=== PATIENT | female | born 1985 | race Hispanic/Latino ===

== ENCOUNTER 2017-02-23 19:35 | Emergency (ER) | payer OTHER ==
[2017-02-23 19:53] VITALS: BP 129/76; TEMP 96.8
--- NOTE | 2017-02-23 20:03 | ED.PDOC ---
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 No shortness of breath. Minimal pain at rest. There was no fall or direct trauma. No loss of sensation. No palpitations. No diaphoresis. No previous injury. Pain is worse with motion. Pain is over the distribution of the latissimus dorsi muscle on the right, primarily the more lateral aspect of the muscle. Pain is worse with function of latissimus dorsi muscle. No obvious deformity. There does not appear to be a muscle tear only likely muscle strain. She also does have some mild tenderness to palpation over the right rhomboid muscle. she denies any previous injury. There is no pain in the shoulder itself with active or passive range of motion. She does appear to be neurovascularly intact. Strength does appear to be preserved. Timing/Duration: 4-6 hours Severity: moderate Improving Factors: immobilization Worsening Factors: movement Associated Symptoms: denies symptoms Allergies/Adverse Reactions: Allergies Bee Venom Allergy (Verified 02/23/17 19:53) Home Medications: Ambulatory Orders Cyclobenzaprine HCl [Flexeril] 5 mg PO TID PRN #30 tab 02/23/17 Review of Systems - Review of Systems Constitutional: States: no symptoms reported EENTM: States: no symptoms reported Respiratory: States: no symptoms reported Cardiology: States: no symptoms reported, chest pain - see history of present illness Gastrointestinal/Abdominal: States: no symptoms reported Genitourinary: States: no symptoms reported Musculoskeletal: States: see HPI Skin: States: no symptoms reported Neurological: States: no symptoms reported Endocrine: States: no symptoms reported Past Medical History (General) - Patient Medical History Surgical History: no surgical history - Vaccination History Hx Influenza Vaccination: Yes - Female History Patient is a Female of Child Bearing Age (10 -59 yrs old): Yes Patient : No Family Medical History - Family History Father Family History: Unknown Physical Exam - Physical Exam General Appearance: Alert, Comfortable, No apparent distress Eye Exam: bilateral normal Ears, Nose, Throat: hearing grossly normal Neck: full range of motion, normal inspection Respiratory: no respiratory distress, no accessory muscle use Cardiovascular/Chest: no edema, other - see history of present illness for thorax exam Rectal Exam: deferred Back Exam: no CVA tenderness, no vertebral tenderness, other - see history of present illness Extremity: normal range of motion, non-tender, normal inspection 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 There does not appear to be a significant tear at this time. Stretching exercises may help. Topical heat may help. 2 Aleve twice daily may also help. She should anticipate to have some discomfort and limited function for a couple of weeks. X-rays are not indicated at this time. She should follow up with her primary care doctor in 10 days to 2 weeks for reevaluation. ER warnings are given for any worsening. Departure - Departure Clinical Impression: Strain of latissimus dorsi muscle Qualifiers: Encounter type: initial encounter Qualified Code(s): S29.012A - Strain of muscle and tendon of back wall of thorax, initial encounter Disposition: Discharge to Home or Self Care Condition: Fair Departure Forms: ED Discharge - Pt. Copy, Patient Portal Self Enrollment Instructions: DI for Muscle Strain Diet: regular diet Activity: other - Lifting limited to 20 pounds with the right side for the next 2 weeks Prescriptions: Cyclobenzaprine HCl [Flexeril] 5 mg PO TID PRN #30 tab PRN Reason: Muscle Spasms Home Medications: Ambulatory Orders Cyclobenzaprine HCl [Flexeril] 5 mg PO TID PRN #30 tab 02/23/17 Additional Instructions: the patient is a 31-year-old female presenting to the emergency room after sustaining what appears to be a right latissimus dorsi muscle strain while at work this morning. There does not appear to be a significant tear at this time. Stretching exercises may help. Topical heat may help. 2 Aleve twice daily may also help. She should anticipate to have some discomfort and limited function for a couple of weeks. X-rays are not indicated at this time. She should follow up with her primary care doctor in 10 days to 2 weeks for reevaluation. ER warnings are given for any worsening.
[2017-02-23 20:18] VITALS: O2SAT 99
== END 2017-02-23 20:18 | disposition home or self-care (01) ==
LOC: ER 19:35
DX: S29.012A Strain of muscle and tendon of back wall of thorax, initial encounter (principal); X50.9XXA Other and unspecified overexertion or strenuous movements or postures, initial encounter; Y92.239 Unspecified place in hospital as the place of occurrence of the external cause; Y99.0 Civilian activity done for income or pay

== ENCOUNTER → 2019-04-05 | Outpatient (CLI) | payer OTHER | LOC: YCFC.O 10:13 | PROVIDERS: ATTEND Family Medicine | DX: R53.83 Other fatigue (principal); R06.02 Shortness of breath ==

== ENCOUNTER 2019-08-02 15:54 | Emergency (ER) | payer OTHER ==
--- NOTE | 2019-08-02 16:07 | ED.PDOC ---
History of Present Illness - General Chief Complaint: Skin/Abrasion/Tear Stated Complaint: needlestick Time Seen by Provider: 08/02/19 16:00 Source: patient Exam Limitations: no limitations - History of Present Illness Initial Comments: 33 yo otherwise healthy female who presents for needle stick. Pt was using blood warmer and attempting to remove air from tubing at y-site with 18 gauge needle. When engaging safety mechanism the edge of the needle scraped the finger pulp of her L index finger. Minimal bleeding afterwards, pt cleaned the wound very well. Believes the only blood on the needle was that out of the blood being transfused, and none from the pt being transfused. Denies injuries elsewhere. Otherwise in normal states of health. Allergies/Adverse Reactions: Allergies Bee Venom Allergy (Verified 02/23/17 19:53) Home Medications: Ambulatory Orders Cyclobenzaprine HCl [Flexeril] 5 mg PO TID PRN #30 tab 02/23/17 Review of Systems - Review of Systems Constitutional: States: no symptoms reported EENTM: States: no symptoms reported Respiratory: States: no symptoms reported Cardiology: States: no symptoms reported Gastrointestinal/Abdominal: States: no symptoms reported Genitourinary: States: no symptoms reported Musculoskeletal: States: no symptoms reported Skin: States: other - Finger stick to L IF Neurological: States: no symptoms reported Endocrine: States: no symptoms reported Hematologic/Lymphatic: States: no symptoms reported Past Medical History (General) - Vaccination History Hx Influenza Vaccination: Yes - Female History Patient : No Family Medical History - Family History Father Family History: Unknown Physical Exam - Physical Exam General Appearance: Alert, Comfortable, No apparent distress, Well Developed, Well Groomed, Well Nourished Neck: full range of motion Respiratory: lungs clear, normal breath sounds, no respiratory distress Cardiovascular/Chest: normal peripheral pulses, regular rate, rhythm Peripheral Pulses: radial,right: 2+, radial,left: 2+ Extremity: normal range of motion Neurologic: alert, normal mood/affect, other - Grossly intact Skin Exam: other - Small puncture wound to L IF finger pulp, no active bleeding. No erythema, fluctuance, induration, discharge. Progress - Progress Progress: 08/02/19 16:27 I have explained and reviewed all results with the pt. Through shared decision m aking discussing risks and benefits, pt declines prophylactic medications. Will discuss with her supervisor filtration the option of testing the pt as well. I explained that emergent conditions may arise and to return to the ER for new, worsening, or any persistent conditions. I've explained the importance of f/u for recheck. All questions and concerns addressed at this time. Pt understands and agrees with plan. Pt well appearing, NAD, is stable for discharge. Nury Mcelroy MD Emergency Medicine Physician Billing Number [id number] Departure - Departure Clinical Impression: Needlestick injury of finger Time of Disposition: 16:17 Disposition: Discharge to Home or Self Care Health Concerns: condition: stable Departure Forms: ED Discharge - Pt. Copy, Patient Portal Self Enrollment Instructions: Wound Care (DC) Referrals: Yossi Mckeon MD [Primary Care Provider] - 1 Week Home Medications: Ambulatory Orders Cyclobenzaprine HCl [Flexeril] 5 mg PO TID PRN #30 tab 02/23/17 Additional Instructions: Follow up: [facility] As needed, if symptoms worsen
[2019-08-02] MEDS: TETANUS,DIPHTHERIA,PERTUSSIS 1 EA SYG IM ONE (16:15)
[2019-08-02 19:07] VITALS: BP 117/69; TEMP 98.5; O2SAT 95
== END 2019-08-02 16:30 | disposition home or self-care (01) ==
LOC: ER 15:54
DX: S61.231A Puncture wound without foreign body of left index finger without damage to nail, initial encounter (principal); W46.1XXA Contact with contaminated hypodermic needle, initial encounter; Y92.9 Unspecified place or not applicable; Y99.0 Civilian activity done for income or pay